=== PATIENT | female | born 1960 | race Caucasian/White ===

== ENCOUNTER → 2016-07-27 | Outpatient (CLI) | payer MEDICARE, MEDICAID ==
--- NOTE | 2016-07-27 08:09 | RAD ---
Procedure: XR SACRUM COCCYX 2 OR MORE VIEWS Exam Date: 07/27/2016 12:00 AM CDT Ordering Provider: JUAN JIMENEZ Clinical Indication: PAIN IN COCCYX Comparison: None Findings: No fracture, focal osseous destruction, or malalignment. Joint spaces are preserved. Soft tissues are unremarkable. Postoperative changes are seen in the lumbosacral spine. There is 3 mm L5-S1 grade 1 anterolisthesis. SI joints are intact. IMPRESSION: No acute osseous abnormality. L4-L5 grade 1 anterolisthesis. Electronically signed by: Madonna Hernández MD 07/27/2016 8:09 AM CDT
== END | disposition home or self-care (01) ==
LOC: RAD 07:52
PROVIDERS: ATTEND Orthopaedic Surgery
DX: M53.3 Sacrococcygeal disorders, not elsewhere classified (principal)

== ENCOUNTER → 2016-08-01 | Outpatient (CLI) | payer MEDICARE, MEDICAID ==
--- NOTE | 2016-08-02 06:13 | MRI ---
Procedure: MR LUMBAR SPINE WITHOUT IV CONTRAST Exam Date: 08/01/2016 9:33 AM CDT Ordering Provider: JUAN JIMENEZ Clinical Indication: Back pain radiating to the right leg. Comparison: Sacrum coccyx series on July 27, 2016 Technique: Multiplanar, multisequence MR images of the lumbar spine were obtained without contrast. Findings: There is transitional lumbosacral anatomy with the fused segment being nomenclature L5-S1, consistent with prior radiograph report. No evidence of vertebral body compression deformity or acute fracture. Spinal cord terminates at the L1-L2 level and is normal in signal morphology. Cauda equina separate appropriately. T12-L1: Unremarkable. L1-L2: Unremarkable. L2-L3: Unremarkable. L3-L4: Unremarkable. L4-L5: Moderate facet arthrosis with marked ligamentum flavum buckling. There is also a small intracanal right facet synovial cyst measuring 7 x 5 mm. This may be amenable to fluoroscopic guided facet cyst aspiration/rupture. This results in severe right subarticular recess stenosis and moderate right-sided spinal canal stenosis. This is best seen on the axial image seven. This is not well appreciated on the sagittal imaging secondary to susceptibility artifact from hardware, however this is felt to be on parasagittal image eight. Otherwise, no spinal canal or foraminal stenosis at this level. L5-S1: Prior surgical fusion with decompressive laminectomy. No spinal canal or foraminal stenosis. There is anterolisthesis of L5 on S1. Prevertebral and paravertebral soft tissues are unremarkable. Impression: Postsurgical changes seen within the lower lumbar spine with transitional lumbosacral anatomy as outlined above. There is a intracanal facet synovial cyst emanating from the right facet joint at L4-L5 which results in severe right subarticular recess stenosis and contact of the descending right L5 nerve root. This may be amenable to fluoroscopic guided percutaneous facet cyst aspiration/rupture. Electronically signed by: Joselo Dela Cruz MD 08/02/2016 6:13 AM CDT
--- NOTE | 2016-08-02 13:50 | MRI ---
EXAM DESCRIPTION: MRI pelvis/sacrum CLINICAL HISTORY: Sacrococcygeal pain COMPARISON: None. 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 No inflammatory arthritis. Partial sacralization left lateral aspect L5 No diagnostic signal abnormality, along the course of the visualized lumbosacral plexus and proximal sciatic nerves. Normal marrow signal. No pelvic soft tissue mass lesion adenopathy or free fluid Lumbar spinal fusion artifact at the L4-5 level IMPRESSION: Minimal osteoarthritis bilateral sacroiliac joints. Sacrum and coccyx otherwise unremarkable Electronically signed by: Nicolas Gonzales MD 08/02/2016 1:50 PM CDT Workstation: [id number]
== END | disposition home or self-care (01) ==
LOC: MRI 09:20
PROVIDERS: ATTEND Orthopaedic Surgery
DX: M54.16 Radiculopathy, lumbar region (principal)

== ENCOUNTER → 2016-09-18 | Outpatient (CLI) | payer MEDICARE, MEDICAID | END | disposition home or self-care (01) | LOC: YCFC.O 08:24 | PROVIDERS: ATTEND Anesthesiology Pain Medicine | DX: Z79.891 Long term (current) use of opiate analgesic (principal); M46.96 Unspecified inflammatory spondylopathy, lumbar region ==

== ENCOUNTER 2016-10-16 06:05 | Day surgery (SDC) | payer MEDICARE, MEDICAID ==
[2016-10-16] MEDS ORDERED: methylPREDNISolone ACETATE 80 MG/ML VIAL ONE (11:30)
[2016-10-16] MEDS ORDERED: SODIUM CHLORIDE 0.9% 10 ML VIAL ONE (11:30)
[2016-10-16] MEDS ORDERED: LIDOCAINE 1% MPF 5 ML VIAL ONE (11:30)
[2016-10-16] MEDS ORDERED: BUPIVACAINE 0.25% INJ 30 ML VIAL INJ ONE (13:30)
[2016-10-16 14:24] VITALS: BP 130/83; TEMP 97.1; O2SAT 96
== END 2016-10-16 13:55 | disposition home or self-care (01) ==
LOC: AMB 06:05 → EDSTATUS 15:15
PROVIDERS: ATTEND Anesthesiology Pain Medicine
DX: M54.16 Radiculopathy, lumbar region (principal); F17.210 Nicotine dependence, cigarettes, uncomplicated; F41.8 Other specified anxiety disorders; J45.909 Unspecified asthma, uncomplicated; K21.9 Gastro-esophageal reflux disease without esophagitis; I10 Essential (primary) hypertension; M46.96 Unspecified inflammatory spondylopathy, lumbar region; Z88.8 Allergy status to other drugs, medicaments and biological substances; Z79.899 Other long term (current) drug therapy
CPT/HCPCS: 62323; 76000; J1030

== ENCOUNTER → 2016-12-12 | Outpatient (CLI) | payer MEDICARE, MEDICAID | END | disposition home or self-care (01) | LOC: YCFC.O 15:03 | PROVIDERS: ATTEND Anesthesiology Pain Medicine | DX: Z79.891 Long term (current) use of opiate analgesic (principal) ==

== ENCOUNTER 2016-12-18 05:00 | Day surgery (SDC) | payer MEDICARE, MEDICAID ==
[2016-12-18] MEDS ORDERED: LIDOCAINE 1% MPF 5 ML VIAL ONE (10:56)
[2016-12-18] MEDS ORDERED: SODIUM BICARBONATE VIAL 50 MEQ/50 ML VIAL ONE (10:56)
[2016-12-18] MEDS ORDERED: SODIUM CHLORIDE 0.9% 10 ML VIAL ONE (10:56)
[2016-12-18] MEDS ORDERED: methylPREDNISolone ACETATE 80 MG/ML VIAL ONE (10:56)
[2016-12-18 12:55] VITALS: O2SAT 95
[2016-12-18] MEDS ORDERED: LIDOCAINE 1% 10 ML VIAL INJ ONE (13:30)
[2016-12-18] MEDS ORDERED: SODIUM CHLORIDE 0.9% 10 ML VIAL INJ ONE (13:30)
[2016-12-18] MEDS ORDERED: SODIUM BICARBONATE VIAL 50 MEQ/50 ML VIAL IV ONE (13:30)
[2016-12-18] MEDS ORDERED: methylPREDNISolone ACETATE 80 MG/ML VIAL INJ ONE (13:30)
[2016-12-18 13:52] VITALS: BP 115/76; TEMP 96.4
== END 2016-12-18 13:40 | disposition home or self-care (01) ==
LOC: AMB 05:00
PROVIDERS: ATTEND Anesthesiology Pain Medicine
DX: M54.16 Radiculopathy, lumbar region (principal); M46.96 Unspecified inflammatory spondylopathy, lumbar region; M54.5 Low back pain; K21.9 Gastro-esophageal reflux disease without esophagitis; F41.8 Other specified anxiety disorders; J45.909 Unspecified asthma, uncomplicated; J44.9 Chronic obstructive pulmonary disease, unspecified; E78.00 Pure hypercholesterolemia, unspecified; F17.210 Nicotine dependence, cigarettes, uncomplicated; Z79.899 Other long term (current) drug therapy
CPT/HCPCS: 62323; 76000; J1030

== ENCOUNTER → 2017-01-09 | Outpatient (CLI) | payer MEDICARE, OTHER | END | disposition home or self-care (01) | LOC: YCFC.O 16:15 | PROVIDERS: ATTEND Anesthesiology Pain Medicine | DX: Z79.891 Long term (current) use of opiate analgesic (principal) ==